=== PATIENT | female | born 1990 | race Hispanic/Latino ===

== ENCOUNTER 2024-12-21 16:50 | Outpatient (CLI) | payer SELFPAY ==
--- OUTSIDE RECORDS SUMMARY | 2024-12-21 16:55 | XMS RPT_ITS | CCD ---
Author Organization [facility] Inform ion Partnership [facility] Care Team Providers Care Powdered Metal Supervisor Name Role Phone Nabila Nash Admitting Unavailable Nabila Nash Attending Unavailable Nabila Nash Referring Unavailable Care Physician, No Primary Primary Care Unava ilable Encounters Encounter Date Encounter Type Care Provider Facility Start: 11-22-2024 ambulatory Nabila Nash Facility: [facility] Payers Date Payer Category Payer Self-pay Unknown [id number] Summary Purpose Family History No Family History Records Found Advance Directives No Advanced Directives Records Found Additional Source Comments INFORMATION SOURCE (unrecogn ized section and content) DATE CREATED AUTHOR 10/15/2024 [facility] FOR RECORDS PERTAINING TO PATIENTS WHO ARE OR HAVE BEEN ENROLLED IN A CHEMICAL DEPENDENCY/SUBSTANCEABUSE PROGRAM, SOME INFORMATION MAY BE OMITTED. This clinical summary was aggregated from multiple sources. Caution should be exercised in using it in the provision of clinical care. This summary normalizes information from multiple sources, and as a consequence, information in this document may materially change the coding, format and clinical context of patient data. In addition, data may be omitted in some cases. CLINICAL DECISIONS SHOULD BE BASED ON THE PRIMARY CLINICAL RECORDS. [facility] [employer] provides no warranty or guarantee of the accuracy or completeness of information in this document.
[2024-12-21 17:12] VITALS: BP 130/71; PULSE 79; PULSE 80; RESP 16; TEMP 37.1; O2SAT 97
[2024-12-21 17:18] VITALS: BMI 31.7
--- NOTE | 2025-01-06 09:21 | OB.TRI.HP_ITS ---
HPI - General General Date of Service: 12/21/24 HPI Narrative HPI - General General Date of Service: 12/21/24 HPI Narrative TAYLOR ORR, is a 34 F @ 40 weeks r/o labor [facility] Medical History (Updated 12/22/24 @ 08:[address] Krystal Devine MD) Advanced maternal age (AMA) in Home Medications Medication Instructions Recorded Last Taken Type aspirin 81 mg tablet,delayed 81 mg PO DAILY 12/21/24 12/21/24 History release (Adult Aspirin Regimen) [id number] 40 mg-1 1 tab PO DAILY 12/21/24 History mg chewable tablet Allergy/AdvReac Type Severity Reaction Status Date / Time No Known Allergies Allergy Verified 12/22/24 03:55 Social History Smoking Status: Never smoker History Elective abortions Hx Para 0 Spontaneous abortions Hx # Term Pregnancies Ectopic pregnancies Hx # Pregnancies Multiple births # of living children Physical Exam Narrative VE: .5cm per nursing - x 2 exams [facility] Medical History (Updated 12/29/24 @ 00:00 by Liban Mendez) Nipple pain Care and examination of lactating mother Advanced maternal age (AMA) in Home Medications Medication Instructions Recorded Last Taken Type oilfuir-ylkv-DQ 40 mg-1 1 tab PO DAILY pregna ncy 12/21/24 12/21/24 History mg chewable tablet acetaminophen 500 mg tablet 1,000 mg (2 x 500 mg) PO Q 6H PRN 12/23/24 Unknown Rx PRN Pain 1-10 Or Fever #0 tabs ibuprofen 600 mg tablet 600 mg PO Q6H PRN PRN Pain S core 12/23/24 Unknown Rx 1-10 #0 tabs Allergy/AdvReac Type Severity Reaction Status Date / Time No Known Allergies Allergy Verified 12/22/24 03:55 Social History Smoking Status: Never smoker History 1 Elective abortions Hx Para 0 Spontaneous abortions Hx # Term Pregnancies Ectopic pregnancies Hx # Pregnancies Multiple births # of living children 1 Past Pregnancies Del. Date Name GA/Weeks Outcome Route Bth Weight Infant Gen Labor Lgth Anesthesia Del Locatn Provider FOB 12/22/24 Susan 40 live - full term vacuum [id number] Fe male 12hours epidural [facility] NST FHR Rate Baby A Baseline: 150 Variability:: Moderate Accelerations:: 15 x 15 Decelerations:: None NST Reactive:: Yes FHR Category:: Category I Uterine Activity:: irregular Assessment & Plan (1) 40 weeks gestation of : (2) AMA (advanced maternal age) primigravida 35+: (3) False labor: PLAN: Plan Plan @ 40 weeks- r/o labor 1) Cervical exam unchaged- dc home 2) NST- well being established
== END 2024-12-21 18:45 | disposition home or self-care (01) ==
LOC: WPOUT 16:53 → WP 16:54
PROVIDERS: Referring Provider Obstetrics & Gynecology; Visit Provider Obstetrics & Gynecology
DX: O47.1 False labor at or after 37 completed weeks of gestation (principal); O09.523 Supervision of elderly multigravida, third trimester; Z3A.40 40 weeks gestation of pregnancy
CPT/HCPCS: 59025; 59050; 99221; G0378

== ENCOUNTER 2024-12-22 04:00 | Inpatient (IN) | payer SELFPAY ==
[2024-12-22] VITALS (81 sets, daily range): BP systolic 105–168; BP diastolic 54–89; PULSE 74–153; RESP 16–18; TEMP 36–37.7; O2SAT 80–99; BMI 31.8
[2024-12-22] MEDS: Lactated Ringers 1,000 ML 999 ML IV (04:24)
[2024-12-22 04:46] LABS: Hematocrit 38.1 % (37-47); Hemoglobin 13.0 g/dL (12.0-15.0); Immature Granulocytes Count 0.090 X10^3/uL (0.0-0.0); Mean Corp Hgb Conc 34.1 g/dL (32-36); Mean Corpuscular Volume 89.4 fL (81-99); Mean Platelet Vol. 11.1 fl (6.2-12.0); NRBC Flagged by Analyzer 0 % (0-5); Platelet Count 201 K/mm3 (150-450); RBC Distribution Width CV 14.0 % (11.6-14.6); RBC Distribution Width SD 45.5 fl (35.1-43.9); Red Blood Count 4.26 M/mm3 (4.2-5.4); White Blood Count 9.9 K/mm3 (4.4-11.0)
[2024-12-22 05:24] LABS: Syphilis Antibodies Nonreactive (Nonreactive)
[2024-12-22] MEDS: Lactated Ringers 1,000 ML 50 ML IV (05:28)
[2024-12-22] MEDS: fentaNYL-bupivacaine (epidural) 100 ML BAG EPIDURAL ×2 (05:40→09:53)
[2024-12-22] MEDS: Oxytocin 15 Units/NS 250ml 15 UNITS/250 ML IV.SOLN 2 UNITS IV (07:39)
--- NOTE | 2024-12-22 08:07 | PCM.HP.OB ---
HPI - General General Date of Admission: 12/22/24 HPI Narrative TAYLOR ORR, is a 34 F @ 40.3who presents c/o contractions- had made cervical change to 3.5cm- kept for labor. [facility] Medical History (Updated 12/22/24 @ 08:[address] Krystal Devine MD) Advanced maternal age (AMA) in Home Medications ?Medication ?Instructions ?Recorded ?Last Taken ?Type aspirin 81 mg tablet,delayed 81 mg PO DAILY 12/21/24 12/21/24 History release (Adult Aspirin Regimen) [id number] 40 mg-1 1 tab PO DAILY 12/21/24 12/21/24 History mg chewable tablet Allergy/AdvReac Type Severity Reaction Status Date / Time No Known Allergies Allergy Verified 12/22/24 03:55 Social History Smoking Status: Never smoker History Elective abortions Hx Para 0 Spontaneous abortions Hx # Term Pregnancies Ectopic pregnancies Hx # Pregnancies Multiple births # of living children NST FHR Rate Baby A Baseline: 140 Variability:: Moderate Accelerations:: 15 x 15 Decelerations:: None NST Reactive:: Yes FHR Category:: Category I Uterine Activity:: 3-5min Vital Signs Vital Signs Vital Signs: 12/22/24 03:42 12/22/24 03:42 12/22/24 03:43 Temperature 97.3 F L Temperature Source Pulse Rate 153 H Respiratory Rate Blood Pressure BP Systolic BP Diastolic Pulse Ox 80 12/22/24 03:44 12/22/24 03:44 12/22/24 03:44 Temperature Temperature Source Temporal Pulse Rate 82 Respiratory Rate Blood Pressure 137/83 H BP Systolic 137 BP Diastolic 83 Pulse Ox 12/22/24 03:44 12/22/24 03:44 12/22/24 05:23 Temperature 97.7 F L Temperature Source Pulse Rate Respiratory Rate 18 Blood Pressure 140/78 H BP Systolic 140 BP Diastolic 78 Pulse Ox 12/22/24 05:23 12/22/24 05:23 12/22/24 05:24 Temperature Temperature Source Pulse Rate 85 89 Respiratory Rate 18 Blood Pressure BP Systolic BP Diastolic Pulse Ox 12/22/24 05:24 12/22/24 05:28 12/22/24 05:28 Temperature Temperature Source Pulse Rate 83 Respiratory Rate Blood Pressure 143/76 H BP Systolic 143 BP Diastolic 76 Pulse Ox 99 12/22/24 05:28 12/22/24 05:29 12/22/24 05:29 Temperature Temperature Source Pulse Rate 97 Respiratory Rate 18 Blood Pressure BP Systolic BP Diastolic Pulse Ox 90 12/22/24 05:33 12/22/24 05:33 12/22/24 05:33 Temperature Temperature Source Pulse Rate 99 Respiratory Rate 18 Blood Pressure 128/76 H BP Systolic 128 BP Diastolic 76 Pulse Ox 12/22/24 05:34 12/22/24 05:34 12/22/24 05:38 Temperature Temperature Source Pulse Rate 91 Respiratory Rate Blood Pressure 126/67 H BP Systolic 126 BP Diastolic 67 Pulse Ox 98 12/22/24 05:38 12/22/24 05:38 12/22/24 05:39 Temperature Temperature Source Pulse Rate 87 90 Respiratory Rate 16 Blood Pressure BP Systolic BP Diastolic Pulse Ox 12/22/24 05:39 12/22/24 05:43 12/22/24 05:43 Temperature Temperature Source Pulse Rate 89 Respiratory Rate Blood Pressure 120/68 BP Systolic 120 BP Diastolic 68 Pulse Ox 98 12/22/24 05:43 12/22/24 05:45 12/22/24 05:45 Temperature Temperature Source Pulse Rate 91 Respiratory Rate 16 Blood Pressure BP Systolic BP Diastolic Pulse Ox 97 12/22/24 05:49 12/22/24 05:49 12/22/24 05:49 Temperature Temperature Source Temporal Pulse Rate 89 Respiratory Rate Blood Pressure 131/80 H BP Systolic 131 BP Diastolic 80 Pulse Ox 12/22/24 05:49 12/22/24 05:49 12/22/24 05:50 Temperature 97.7 F L Temperature Source Pulse Rate 95 Respiratory Rate 16 Blood Pressure BP Systolic BP Diastolic Pulse Ox 12/22/24 05:50 12/22/24 05:54 12/22/24 05:54 Temperature Temperature Source Pulse Rate 85 Respiratory Rate Blood Pressure 127/74 H BP Systolic 127 BP Diastolic 74 Pulse Ox 97 12/22/24 05:54 12/22/24 05:55 12/22/24 05:55 Temperature Temperature Source Pulse Rate 93 Respiratory Rate 16 Blood Pressure BP Systolic BP Diastolic Pulse Ox 98 12/22/24 05:57 12/22/24 05:58 12/22/24 05:58 Temperature 97.9 F Temperature Source Pulse Rate 92 Respiratory Rate Blood Pressure 127/80 H BP Systolic 127 BP Diastolic 80 Pulse Ox 12/22/24 05:58 12/22/24 06:00 12/22/24 06:00 Temperature Temperature Source Pulse Rate 97 Respiratory Rate 16 Blood Pressure BP Systolic BP Diastolic Pulse Ox 99 12/22/24 06:03 12/22/24 06:03 12/22/24 06:03 Temperature Temperature Source Pulse Rate 86 Respiratory Rate 18 Blood Pressure 133/78 H BP Systolic 133 BP Diastolic 78 Pulse Ox 12/22/24 06:05 12/22/24 06:05 12/22/24 06:08 Temperature Temperature Source Pulse Rate 90 Respiratory Rate Blood Pressure 131/78 H BP Systolic 131 BP Diastolic 78 Pulse Ox 98 12/22/24 06:08 12/22/24 06:08 12/22/24 06:10 Temperature Temperature Source Pulse Rate 93 92 Respiratory Rate 18 Blood Pressure BP Systolic BP Diastolic Pulse Ox 12/22/24 06:10 12/22/24 06:13 12/22/24 06:13 Temperature Temperature Source Pulse Rate 91 Respiratory Rate Blood Pressure 131/81 H BP Systolic 131 BP Diastolic 81 Pulse Ox 98 12/22/24 06:13 12/22/24 06:42 12/22/24 06:42 Temperature Temperature Source Pulse Rate 92 Respiratory Rate 18 Blood Pressure 122/68 H BP Systolic 122 BP Diastolic 68 Pulse Ox 12/22/24 06:42 12/22/24 06:42 12/22/24 06:42 Temperature 96.8 F L Temperature Source Temporal Pulse Rate Respiratory Rate 18 Blood Pressure BP Systolic BP Diastolic Pulse Ox 12/22/24 07:26 12/22/24 07:26 12/22/24 07:26 Temperature Temperature Source Pulse Rate 87 Respiratory Rate 16 Blood Pressure 114/59 L BP Systolic 114 BP Diastolic 59 Pulse Ox 12/22/24 07:26 12/22/24 07:26 Temperature 98.1 F Temperature Source Pulse Rate Respiratory Rate Blood Pressure BP Systolic BP Diastolic Pulse Ox 98 Weight Weight: 78.834 kg Body Mass Index (BMI) 31.8 Physical Exam Narrative VE: 480/-2 AROM- light meconium noted. IUPC placed. Const alert and oriented x3 General Appearance: cooperative HEENT normocephalic GI GI Narrative: Gravid, non tender to palpation. OB / External & Speculum: external exam normal Extremity normal to inspection Skin no rashes or lesions noted Neuro oriented x3 and CN's II-XII intact bilaterally Psych Appearance: grossly normal Labs Labs Labs: Blood Type O POSITIVE Antibody Screen NEGATIVE Hct, (37-47) 38.1 % Hgb, (12.0-15.0) 13.0 g/dL Syphilis Total Ab, (Nonreactive) Nonreactive Assessment & Plan (1) AMA (advanced maternal age) primigravida 35+: (2) 40 weeks gestation of : (3) Abnormal glucose affecting : PLAN: Plan Admit to L&D Montior FHR/TOCO Epidural for pain Monitor VS Anticipate Pitocin and AROM Light meconium will have peds present for delivery
--- NOTE | 2024-12-22 08:23 | OB.TRI.NOTE ---
HPI - General General Date of Service: 12/21/24 HPI Narrative TAYLOR ORR, is a 34 F @ 40 weeks r/o labor [facility] Medical History (Updated 12/22/24 @ 08:[address] Krystal Devine MD) Advanced maternal age (AMA) in Home Medications ?Medication ?Instructions ?Recorded ?Last Taken ?Type aspirin 81 mg tablet,delayed 81 mg PO DAILY 12/21/24 12/21/24 History release (Adult Aspirin Regimen) [id number] 40 mg-1 1 tab PO DAILY 12/21/24 12/21/24 History mg chewable tablet Allergy/AdvReac Type Severity Reaction Status Date / Time No Known Allergies Allergy Verified 12/22/24 03:55 Social History Smoking Status: Never smoker History Elective abortions Hx Para 0 Spontaneous abortions Hx # Term Pregnancies Ectopic pregnancies Hx # Pregnancies Multiple births # of living children Physical Exam Narrative VE: .5cm per nursing - x 2 exams NST FHR Rate Baby A Baseline: 150 Variability:: Moderate Accelerations:: 15 x 15 Decelerations:: None FHR Category:: Category I Uterine Activity:: irregular Assessment & Plan (1) 40 weeks gestation of : (2) AMA (advanced maternal age) primigravida 35+: (3) False labor: PLAN: Plan @ 40 weeks- r/o labor 1) Cervical exam unchaged- dc home 2) NST- well being established
[2024-12-22] MEDS: 0.9% Normal Saline 1,000 ML IV.SOLN. 300 ML INTRA-UTER (08:42)
[2024-12-22] MEDS: Sodium Chloride 0.65% 1 SPRAY SPRAY.BTL 2 SPRAY NASAL (10:24)
[2024-12-22] MEDS: Lactated Ringers 1,000 ML 200 ML IV (10:36)
--- NOTE | 2024-12-22 14:06 | EX.PCM.OBVAG ---
Maternal Data Information Final JEMMA: 12/19/24 Final JEMMA Source: US <20 weeks Gestational age: 40 Vaginal Delivery Maternal Presentation Maternal Presentation: Active Labor Vaginal Delivery Information Procedure Performed: Vacuum Assisted Vaginal Delivery Station at time of placement: +3 Number of vacuum pulls: 3 Number of vacuum pop offs: 0 Surgeon/Practitioner: Krystal Devine Date of Procedure: 12/22/24 Pre-Procedure Diagnosis: AMA, 40 weeks , meconium fluid Post-Procedure Diagnosis: same, live female Type of anesthesia: Epidural Estimated Blood Loss: 300 Time of Delivery: 13:46 Findings Description of procedure: Patient progressed to fully dilated. Fetus was having repetitive variable decelerations with pushing efforts. I was called into the unit. At this time upon my assessment the head was a +3 station discussed with the patient use of vacuum. We discussed risks and benefits of the vacuum including but not limited to scalp laceration, vaginal laceration, brain bleed for the fetus. Epidural was adequate and the bladder was straight cathed prior to placement of the vacuum. The vacuum is placed at the flexion point and the vacuum was initiated at 550 mmHg. The vacuum was used with 3 pulls to bring the head to the perineum at this point the heart rate had recovered and was doing well. The patient had good maternal pushing efforts and at this time head was delivered without the use of the kiwi vacuum. The anterior posterior shoulders followed along with the infant's body without delay. At this time ABG and VBG were attempted however minimal blood in the cord. Cord blood was also obtained. Pitocin was started and the placenta delivered without complication intact. Second-degree perineal laceration was appreciated. This was repaired using 2-0 Vicryl and the 3-0 Rapide in the usual fashion. Excellent hemostasis was appreciated. Fundus was firm. Presentation: Vertex Amniotic Membrane Rupture Type: Artificial Amniotic Fluid Description: Lightly stained meconium Placental Delivery Description: Spontaneous Placenta Disposition: [facility] Specimen collected: No Cord Vessel Description: 3 Vessels Cord Entanglement: None Cord Gases: VBG Infant A Gender: Female (1 minute): 8 (5 minute): 9 Delayed Cord Clamping: Yes Barrel And Receiver Aligner enterprise integration architect: No Post Vaginal Deli Medications given after delivery: IV Pitocin Episiotomy Description: None Laceration: Perineal Extension/lac and 2nd degree Complication Complications: No
[2024-12-22] MEDS: Oxytocin 15 Units/NS 250ml 15 UNITS/250 ML IV.SOLN 83 UNITS IV (14:30)
[2024-12-23 04:56] VITALS: BP 112/57; PULSE 86; RESP 16; TEMP 36.8; O2SAT 97
[2024-12-23 05:03] VITALS: BP 112/57; PULSE 81; TEMP 36.8
[2024-12-23] MEDS: GLYCERIN/WITCH HAZEL (TUCKS) MED..PAD 1 EACH TOPICAL (05:06)
[2024-12-23 08:16] VITALS: BP 112/65; PULSE 81; TEMP 36.8
[2024-12-23 08:21] VITALS: RESP 16
--- NOTE | 2024-12-23 08:23 | PCM.PN.OB ---
Subjective Subjective Doing well per patient and nursing staff. Ambulating and taking PO without difficulty. Voiding and passing flatus. Pain controlled. , services for assistance. Denies headache, visual changes, chest pain, shortness of breath, leg pain or increased bleeding. Lochia normal. Objective Data Objective Data Vital Signs: Vital Signs Temp Pulse Resp BP Pulse Ox O2 Del Method 98.2 F 81 16 112/65 97 Room Air 12/23/24 08:16 12/23/24 08:16 12/23/24 08:21 12/23/24 08:16 12/23/24 04:56 12/23/24 08:21 Oxygen Delivery Method Room Air Weight: 173 lb 12.8 oz Body Mass Index (BMI) 31.8 Intake & Output: Intake and Output for Last 24 Hours 12/21/24 12/22/24 12/23/24 23:59 22:59 23:59 Intake Total 2603.34 / 2603.34 Output Total 1500 / 1500 Balance 1103.34 / 1103.34 Lab / Micro Data 12/22/24 04:24 ROS Constitutional Constitutional: Reports systems reviewed and no addt'l complaints, except as documented; Denies headache(s) Eyes Eyes: Denies acute decrease in peripheral vision, blurry vision or change in vision ENT HEENT: Reports systems reviewed and no addt'l complaints, except as documented Cardiovascular Cardiovascular: Denies chest pain or dizziness Respiratory/Chest Respiratory/Chest: Denies cough, dyspnea, dyspnea on exertion, shortness of breath at rest or shortness of breath with exertion Gastrointestinal Gastrointestinal: Denies abdominal pain, diarrhea, nausea or vomiting Genitourinary Genitourinary: Denies abdominal discomfort Musculoskeletal Musculoskeletal: Denies limited range of motion Integumentary Integumentary: Reports systems reviewed and no addt'l complaints, except as documented Neurologic Neurologic: Reports systems reviewed and no addt'l complaints, except as documented Psychiatric Psychiatric: Reports systems reviewed and no addt'l complaints, except as documented Endocrine Endocrinology: Reports systems reviewed and no addt'l complaints, except as documented Hematologic/Lymphatic Hematologic/Lymphatic: Reports systems reviewed and no addt'l complaints, except as documented Allergic/Immunologic Allergic/Immunologic: Reports systems reviewed and no addt'l complaints, except as documented Physical Exam Const alert and oriented x3 General Appearance: cooperative Orientation / Consciousness: awake, oriented to person, oriented to place and oriented to time Exam Limitations: no limitations HEENT normocephalic Head and Scalp: normal to inspection, normocephalic and atraumatic Face and Sinus: normal facial exam Eyes General Eye: normal appearance of both eyes Neck full ROM Chest Chest: symmetrical chest wall rise Resp normal respiratory effort and normal air movement Auscultation: clear to auscultation bilaterally Cardio regular rate, regular rhythm, S1 normal heart sound, S2 normal heart sound, no murmurs, no rub, no gallops and no clicks GI normal to inspection, nondistended, normoactive bowel sounds and non-tender GI Narrative: Fundus firm 2 below U appearance of the vagina normal Narrative: Normal lochia rubra Bladder / Kidney Exam: no CVA tenderness Back/Spine normal ROM Extremity normal to inspection and full ROM Skin no rashes or lesions noted Neuro oriented x3, CN's II-XII intact bilaterally and moves all extremities Sensorium / Orientation: awake, alert and oriented to person Motor Exam: clonus absent Deep Tendon Reflexes: Rt Patellar (L4): 2+ and Lt Patellar (L4): 2+ Assessment & Plan (1) Vaginal delivery: PLAN: Plan 1) Routine PPD#1 2) Vitals stable 3) I&O 4) Pain management 5) services PRN 6) Planning D/C home today
--- NOTE | 2024-12-23 13:45 | PCM.DC.SUM ---
Providers Date of Admission: 12/22/24 Primary Care Physician: Lian Primary Care Phys Reason For Visit: VAG DELIVERY Diagnosis Discharge Diagnosis (1) Vaginal delivery: Status: Acute Code(s): O80 - Encounter for full-term uncomplicated delivery Plan 1) Routine PPD#1 2) Vitals stable 3) I&O 4) Pain management 5) services PRN 6) Planning D/C home today Medications at Discharge Home Medications [id number] 40 mg-1 mg chewable tablet 1 tab PO DAILY 12/21/24 acetaminophen 500 mg tablet 1,000 mg (2 x 500 mg) PO Q6H PRN PRN Pain 1-10 Or Fever #0 tabs 12/23/24 ibuprofen 600 mg tablet 600 mg PO Q6H PRN PRN Pain Score 1-10 #0 tabs 12/23/24 Hospital Course Summary of Care Provided Minutes Spent on Discharge: 15 Weight / BMI Weight Weight: 173 lb 12.8 oz Body Mass Index (BMI) 31.8 ABG / Lab / Microbiology Data 12/22/24 04:24 D/C Instructions DC O2, CPAP, BIPAP Needs Home O2 Discharge instructions: No Meaningful Use Info Meaningful Use Meaningful Use Diagnoses (Choose all that apply): None applicable Discharge Plan Admission Admit Date/Time: 12/22/24 04:00 Primary Reason for Your Visit: Vaginal Delivery Attending Provider: Krystal Devine Primary Care Provider: Lian Guadalupe Primary Discharge Orders/Prescriptions Prescriptions: New acetaminophen 500 mg Tablet 1,000 mg PO Q6H PRN PRN (Reason: Pain 1-10 Or Fever) Qty: 0 0RF ibuprofen 600 mg Tablet 600 mg PO Q6H PRN PRN (Reason: Pain Score 1-10) Qty: 0 0RF Continued [id number]-[id number] 40-1 mg tablet,chewable 1 tab PO DAILY Discontinued aspirin [Adult Aspirin Regimen] 81 mg tablet,delayed release (DR/EC) 81 mg PO DAILY Referrals / Follow Up: Care PhysicianLian Primary [Primary Care Provider, Medical] Disposition Disposition (needs filled in before D/C Order can be placed): Home, Self Care
[2024-12-23 14:23] VITALS: BP 131/77; PULSE 98
[2024-12-23 14:25] VITALS: BP 131/77; PULSE 90; RESP 18; TEMP 36.8; O2SAT 96
== END 2024-12-23 15:40 | disposition home or self-care (01) | DRG 807 ==
LOC: WPOUT 04:06 → WP 04:06
PROVIDERS: Admitting Provider Obstetrics & Gynecology; Visit Provider Obstetrics & Gynecology
DX: O77.0 Labor and delivery complicated by meconium in amniotic fluid (principal); Z37.0 Single live birth; O99.814 Abnormal glucose complicating childbirth; O70.1 Second degree perineal laceration during delivery; O76 Abnormality in fetal heart rate and rhythm complicating labor and delivery; Z3A.40 40 weeks gestation of pregnancy
CPT/HCPCS: 59025; 59050; 85025; 86780; 86850; 86900; 86901; 99221; G0378; J2405